=== PATIENT | female | born 1960 | race Caucasian/White ===

== ENCOUNTER 2021-06-22 06:55 | Observation (INO) | payer OTHER ==
[~2021-06-22] VITALS: Ht 162.6 cm; Wt 72.7 kg
[~2021-06-22 06:55] MED LIST: ONDANSETRON ODT8 MG PO; OXYCODONE HCL5 MG PO; PROMETHAZINE HC25 M1 PO; REGLAN10 MG
[2021-06-22] MEDS ORDERED: ALPRAZOLAM0.5 MG PO (08:17)
[2021-06-23] MEDS ORDERED: OXYCODON-ACETA1 EAC2 PO (13:37)
[2021-06-23] MEDS ORDERED: ACETAMINOPHEN500 MG PO (13:37)
--- NOTE | 2021-06-30 11:31 | PATH ---
[facility] [address] [place], [place] [address] Signed SPECIMEN(S): A LEFT RADICAL MODIFIED MASTECTOMY LEVEL [address] SPECIMEN SOURCE: A. LEFT RADICAL MODIFIED MASTECTOMY LEVEL [address] CLINICAL HISTORY: Infiltrating ductal carcinoma of left breast. Left mastectomy with inj. methylene blue for SLN bx with IOPC with possible axillary dissection. FINAL PATHOLOGIC DIAGNOSIS: Breast and level 3 axillary lymph nodes, left, modified radical mastectomy: - Invasive ductal carcinoma with the following features: - Tumor sites: 1 o'clock. - Histologic type: Invasive carcinoma of no special type (ductal). - Histologic grade (Coloma histologic score): - Glandular (acinar)/tubular differentiation score: 3. - Nuclear pleomorphism score: 2. - Mitotic rate score: 3. - Overall grade: Grade 3 of 3 (total score 8 of 9). - Tumor size: Focus 1: 27 x 22 x 21 mm Focus 2: 19 x 17 x 16 mm - Tumor focality: Two foci of invasive carcinoma, see comment. - Ductal carcinoma in situ (DCIS): Present. - Architectural patter: Solid. - Nuclear grade: Grade 3 (high). - Necrosis: Present, focal. - Lobular carcinoma in situ (LCIS): Not identified. - Lymphovascular invasion: Present. - Dermal lymphovascular invasion: Not identified. - Microcalcifications: Present in DCIS, invasive carcinoma, and non-neoplastic tissue. - Treatment effect in the breast: No known presurgical therapy. - Margins: All margins negative for invasive carcinoma. - Posterior margin: Less than 1 mm, see Comment. - Superior and inferior margins: Greater than 10 mm. - Margin status for DCIS: All margins negative for DCIS. - Greater than 10 mm from all margins. - Regional lymph nodes: Tumor present in regional lymph nodes. - Number of lymph nodes with macrometastases: 11 - Number of lymph nodes with micrometastases: 1 PATIENT NAME: GO BELTRAN PATHOLOGY DATE OF : 56 REPORT #: [id number] PHYSICIAN: ADOLFO PATHOLOGY PCP: MARCELLUS JOHNSON PROCESSING OPERATOR REPORT IS CONFIDENTIAL AND NOT TO BE RELEASED WITHOUT AUTHORIZATION [facility] [address] [place], [place] [address] Signed - Number of lymph nodes with isolated tumor cells: 1 - Size of largest vj metastatic deposit: 15 mm - Extra vj extension: Present, >2 mm - Total number of lymph nodes examined: 15 - Number of sentinel nodes examined: Not applicable. - Breast biomarker studies: Please refer to previously performed testing ([id number]), interpreted as ER positive, WV negative and HER2 positive for amplification by FISH. - Pathologic stage classification (pTNM, AJCC 8th edition): mpT2 pN3a COMMENT: Gross examination revealed two masses at the 1 o'clock position. These two masses were 1.3 cm apart from each other. Microscopically, the tissue between the two masses at the 1 o'clock position contained some foci of invasive ductal carcinoma, however the invasive carcinoma does not appear to be continuous through the intervening tissue. Therefore, the two masses are considered two separate tumor foci. The closest posterior margin is in regards to tumor within an upper outer quadrant lymph node. As part of [facility] Clinical Data Programmer Program, this case was reviewed by another member of our pathology staff. The findings were discussed with Dr. Cade on 06/30/2021. NAL:cml:C1NR MICROSCOPIC EXAMINATION: Histologic sections of all submitted blocks are examined by light microscopy. These findings, together with the gross examination, support the pathologic diagnosis. GROSS DESCRIPTION: The specimen, labeled "NL, A," and designated on the requisition "left radical modified mastectomy and level 3 axillary lymph nodes," is received in formalin and consists of a 767 gram, 20.2 x 19.6 x 3.7 cm mastectomy specimen with attached axillary tail up to 7.2 cm wide. The specimen is oriented using the axillary tail. On the anterior surface of the specimen is an oval, unoriented, christian, wrinkled, 20.1 x 10.1 cm skin segment with a centrally located, previously partially blue inked, 4.7 x 4.2 cm areola that has a sunken, christian, grossly unremarkable, 1.1 x 1.0 x 0.6 cm nipple. Additionally, the skin has a 0.2 x 0.2 cm, red macule lesion that is 1.7 cm PATIENT NAME: GO BELTRAN PATHOLOGY DATE OF : 56 REPORT #: [id number] PHYSICIAN: ADOLFO PATHOLOGY PCP: MARCELLUS JOHNSON PROCESSING OPERATOR REPORT IS CONFIDENTIAL AND NOT TO BE RELEASED WITHOUT AUTHORIZATION [address] [address] Signed from the nearest peripheral skin margin, superior. An additional skin surface discrete mass/lesion is not grossly identified. The specimen is follows: Superior aspect of specimen = blue; inferior aspect of specimen = green; posterior = black. The specimen is sectioned from medial to lateral into 21 slices to reveal three christian-white, indurated masses. The first mass (slices 10-12) is within the central portion of the specimen, 2.7 x 2.2 x 2.1 cm, christian-white, markedly indurated, ill-defined, and directly beneath the nipple. The mass does not grossly appear to involve the nipple. The mass is 0.2 cm from the skin, 0.2 cm from the nipple, 2.5 cm from the deep margin, 4.4 cm from the superior margin, and 7.1 cm from the inferior margin. The second mass (slices 14-15) is 1.3 cm from the first mass, ill-defined, christian-white, 1.9 x 1.7 x 1.6 cm. The mass is 0.7 cm from the deep margin, 2.7 cm from the skin, 4.1 cm from the superior margin, 6.5 cm from the inferior margin, and 8.3 cm from the nipple. The combined greatest length of the first and second mass together is 5.2 cm. The third mass (slices 19-20) is 1.5 x 1.1 x 0.7 cm, christian-white, ill-defined, indurated, and consistent with a possible lymph node due to its location in the upper outer quadrant. The mass is 2.3 cm from the second mass, 0.1 cm from the deep margin, 2.1 cm from the skin, 3.5 cm from the superior margin, 4.6 cm from the inferior margin, and 12.9 cm from the nipple. The remaining parenchyma is comprised of yellow fibrofatty and christian-white fibroglandular tissue. The fibroglandular tissue contains multiple, rare areas of clear to brown fluid-filled, smooth inner walled cystic structures from less than 0.1 up to 0.7 cm in greatest dimension. An additional discrete mass/lesion is not grossly identified. Fibroglandular tissue comprises approximately 15% of the remaining parenchyma. A biopsy marker is not grossly identified. The axillary tail is palpated for lymph nodes and 13 mostly christian-white, indurated lymph node candidates from 0.4 up to 1.6 cm in greatest dimension are found. Residential Therapist sections are submitted as follows: (A1) First mass to nipple and areolar complex (slice 10) (A2) First mass to skin (slice 11) (A3) First mass to normal parenchyma (slice 11) (A4) Nearest posterior margin to first mass (slice 11); (A2-A4) form a full cross-section of first mass PATIENT NAME: GO BELTRAN PATHOLOGY DATE OF : 56 REPORT #: [id number] PHYSICIAN: ADOLFO SNYDER PCP: MARCELLUS JOHNSON PROCESSING OPERATOR REPORT IS CONFIDENTIAL AND NOT TO BE RELEASED WITHOUT AUTHORIZATION [facility] [address] [facility] [place], [place] [address] Signed (A5) Nearest superior margin to first mass (slice 11) (A6) Nearest inferior margin to first mass (slice 11) (A7-A8) Sections between first and second mass (slice 13) (A9-A10) Second mass to deep margin (slice 14) (A11) Second mass nearest superior margin (slice 14) (A12) Second mass nearest inferior margin (slice 14) (A13) Second mass nearest skin (slice 14) (A14) Section in between second and third (slice 17) (A15-A16) Third mass to deep margin (slice 19) (A17) Third mass nearest skin (slice 19) (A18) Third mass nearest superior margin (slice 19) (A19) Third mass to nearest inferior margin (slice 19) (A20) Area of dense fibroglandular tissue (slice 10) (A21) Upper-outer quadrant (slice 15) (A22) Lower outer quadrant (slice 18) (A23) Upper inner quadrant (slice 7) (A24) Lower inner quadrant (slice 6) (A25) 1 trisected lymph node candidate (A26) 3 lymph node candidates in toto (A27) 2 lymph node candidates in toto (A28) 2 lymph node candidates in toto (A29) 1 trisected lymph node candidate (A30) 1 bisected lymph node candidate (A31) 1 bisected lymph node candidate (A32-A33) 1 bisected lymph node candidate (A34-A37) 1 quadrisected lymph node candidate Cold ischemic time: Grossly indeterminate due to lack of information. Formalin fixation time: Between 6 and 72 hours. AI (under the direct supervision of a pathologist) The Gross Description was prepared using a voice recognition system. The report was reviewed for accuracy; however, sound-alike word errors, addition and/or deletions may occur. If there is any question about this report, please contact Client Services. PERFORMING LABORATORY: The technical component was performed by [email or web address] [address] (Wharf Attendant: Prabha Noe MD; CLIA# [id number]). [email or web address], [address] [place] [address] (CLIA# [id number]). PATIENT NAME: GO BELTRAN PATHOLOGY DATE OF : 56 REPORT #: [id number] PHYSICIAN: ADOLFO PATHOLOGY PCP: MARCELLUS JOHNSON NP REPORT IS CONFIDENTIAL AND NOT TO BE RELEASED WITHOUT AUTHORIZATION [facility] [address] [place], [place] [address] [address] Signed Diagnostician: Taylor Kumar MD Pathologist Electronically Signed 06/30/2021 Copies: ~ PATIENT NAME: GO BELTRAN PATHOLOGY DATE OF : 56 REPORT #: [id number] PHYSICIAN: ADOLFO PATHOLOGY PCP: MARCELLUS JOHNSON NP REPORT IS CONFIDENTIAL AND NOT TO BE RELEASED WITHOUT AUTHORIZATION
--- NOTE | 2021-07-01 11:23 | OR ---
[facility] [address] [place], [place] [address] Signed DATE OF OPERATION: 06/22/2021 SURGEON: Mallory Walsh MD PREOPERATIVE DIAGNOSES: 1. Left subareolar infiltrating ductal breast carcinoma with nipple retraction; additional rock-hard upper outer quadrant mass biopsy inconclusive. 2. Possible axillary lymph node enlargement on ultrasound. POSTOPERATIVE DIAGNOSES: 1. Left subareolar infiltrating ductal breast carcinoma with nipple retraction; additional rock-hard upper outer quadrant mass biopsy inconclusive. 2. Possible axillary lymph node enlargement on ultrasound. PROCEDURES PERFORMED: Clinically positive multiple hard axillary lymph nodes. 1. Left sentinel lymph node methylene blue dye injection. 2. Left modified radical mastectomy (level 3 axillary adenectomy). ANESTHESIA: General LMA; Mallory Bonner CRNA. INDICATIONS: This 60-year-old white woman is a patient of Evette Johnson, nurse practitioner in [place], [place]. She was noted to have retraction of the left nipple and a mammogram was performed showing several left breast lesions, at least 2 quite suspicious for malignancy. Her mammogram was performed on May 31, 2021. It was considered BI-RADS category 5. An ultrasound guided biopsy of the subareolar mass confirmed infiltrating ductal carcinoma. There was another lesion that was so dense and hard in the upper outer aspect that adequate biopsy could not be undertaken, though the lesion was well visualized. The lesion was considered to be infiltrating ductal carcinoma, grade 3/3 with extensive high-grade ductal carcinoma in situ as well as lymphovascular invasion. HER-2/miguel angel receptor is equivocal. Consideration is made for open excisional biopsy of the additional lesion in the upper outer aspect. However, I see at least one other possible lesion of the breast that would likely be positive for malignancy and her underlying breast cancer should be clinically suspect as a multicentric breast cancer. Imaging studies did show axillary lymph node enlargement, though clinical examination does not show that. She has no sign of left arm edema. We have discussed the various options of management and have concluded a left total Electronically Signed By: MALLORY WALSH MD 07/01/21 1123 PATIENT NAME: GO BELTRAN OPERATIVE REPORT DATE OF : 56 REPORT #: [id number] PHYSICIAN: MALLORY WALSH MD PCP: MARCELLUS JOHNSON LEATHER GRADER REPORT IS CONFIDENTIAL AND NOT TO BE RELEASED WITHOUT AUTHORIZATION [facility] [address] [place], [place] [address] Signed mastectomy, sentinel lymph node biopsy, possible axillary dissection would be the most appropriate given her particular circumstances. The risks of bleeding, infection, cosmetic deformity, and so forth were all reviewed. We did also discuss reconstruction options. Given the possibility this represents stage III disease, I have recommended against immediate reconstruction to allow for complete cancer treatment and reconstruction in the future if desired. She agrees with this assessment as well. She understands the risks of bleeding, infection, cosmetic deformity, arm edema, need for additional treatment and so on and wished to proceed. FINDINGS: Injection of methylene blue dye in the subepithelial space in the left periareolar area did not show any uptake to any axillary lymph nodes at all; this was highly suspect for lymphatic congestion. The lymph nodes within the left axilla were highly suspicious for multiple metastatic lymph nodes. They were rock-hard and extended up to the level 3 lymph node station. Extensive left axillary dissection up to level 3 lymph nodes was undertaken in addition to a total mastectomy. There was no remaining palpable suspicious lymph nodes in the axilla. The long thoracic and thoracodorsal neurovascular bundles were identified and preserved. DESCRIPTION OF PROCEDURE: The patient was brought to the operating room, given a general LMA type anesthetic. Preoperative antibiotic Ancef was given. Sequential compression device stockings used and heparin subcutaneously administered. The palpable lesion in the central breast was easily identified and an upper outer quadrant mass also identified. Axillary palpation showed no suspicious nodes. The left chest and breast were prepared with a Betadine based solution and draped sterilely. Appropriate area for excision of nipple-areolar complex was outlined and a broad-based tail taken towards the axilla so as to avoid left axillary deformity. An incision was made with a 15 blade and developed with electrocautery. Superior and inferior flaps were developed with blunt and electrocautery dissection maintaining viable flaps, but assuredly taking the breast parenchyma itself. Dissection laterally was undertaken leaving the axillary fat pad in situ. The breast was excised from a medial to lateral direction using electrocautery leaving of course the pectoralis muscle, but taking the pectoralis fascia. The rectus muscle inferiorly and serratus muscles laterally were identified and preserved. Sharp dissection was used to free the lateral edge of the left pectoralis and retraction of the pectoralis allowed for identification of soft tissue between the pectoralis minor and major. Sharp dissection on the glistening capsule of the axillary contents was undertaken and using blunt dissection, search was made for methylene blue lymph tissue. There was none forthcoming. There were no lymphatic channels identified with blue dye either, which Electronically Signed By: MALLORY WALSH MD 07/01/21 1123 PATIENT NAME: GO BELTRAN OPERATIVE REPORT DATE OF : 56 REPORT #: [id number] PHYSICIAN: MALLORY WALSH MD PCP: ELIZABETH,MARCELLUS L LEATHER GRADER REPORT IS CONFIDENTIAL AND NOT TO BE RELEASED WITHOUT AUTHORIZATION [facility] [address] [place], [place] [address] Signed was obviously indicative of probable lymphatic congestion. Palpation of the parenchyma of the axilla showed rock-hard lymph nodes completely consistent with metastatic disease. Further dissection was undertaken in hopes of finding a sentinel lymph node to pass for pathology to more fully justify complete axillary dissection. Further dissection cephalad showed the multiple very suspicious lymph nodes and therefore, axillary dissection was deemed most advisable even without frozen pathology confirmation of metastatic disease. Sharp dissection was undertaken in the region of the left axillary vein. The dissection guided by the level of suspicious nodes in the apex of the axilla. Small clips were applied to neurovascular bundles as required. The long thoracic and thoracodorsal neurovascular bundles were preserved of course. Meticulous care was made in dissecting level 3 axillary tissue, which did have firm and suspicious lymph tissue within it. Ultimately, complete axillary dissection was accomplished. Further dissection of the axillary contents still showed no sign of uptake in methylene blue dye. Irrigation was undertaken of the wound with sterile water. Hemostasis had been assured with electrocautery and clips as necessary. Inferiorly, 2 small stab incisions allowed for placement of 7 mm flat Manny drains, one beneath the flaps, the other in the axilla. The flaps appeared viable. The skin of the flaps was reapproximated with interrupted 2-0 Vicryl and the skin was then closed with a running subcuticular 3-0 Vicryl. Steri-Strips were applied as was an Acticoat dressing. An op-site was used to secure the Manny drains, which were then attached to bulb suction. Blood loss was approximately 100 mL. Sponge, needle, and instrument counts reported as correct x3. MD JW Sal/MODL /[id number] cc: MD Evette Suarez NP [place], [place] Electronically Signed By: MALLORY WALSH MD 07/01/21 1123 PATIENT NAME: GO BELTRANE OPERATIVE REPORT DATE OF : 56 REPORT #: [id number] PHYSICIAN: MALLORY WALSH MD PCP: MARCELLUS JOHNSON NP REPORT IS CONFIDENTIAL AND NOT TO BE RELEASED WITHOUT AUTHORIZATION [facility] [address] [place] [address] [place] [id number] Signed Copies: ANNMARIE PARHAM MD ~ Electronically Signed By: MALLORY WALSH MD 07/01/21 1123 PATIENT NAME: DEVINGO TY OPERATIVE REPORT DATE OF : 56 REPORT #: [id number] PHYSICIAN: MALLORY WALSH MD PCP: MARCELLUS JOHNSON NP REPORT IS CONFIDENTIAL AND NOT TO BE RELEASED WITHOUT AUTHORIZATION
== END 2021-06-23 14:45 | disposition home or self-care (01) ==
LOC: DS 06:55 → MS 09:30 → EDSTATUS 09:30 → MS 12:30 → DS 13:36 → MS 13:36
PROVIDERS: ADMIT Surgery; ATTEND Surgery
PROC: 0HBU0ZZ Excision of Left Breast, Open Approach (ICD-10-PCS; principal; 2021-06-22 08:45)
DX: C50.412 Malignant neoplasm of upper-outer quadrant of left female breast (principal); Z90.49 Acquired absence of other specified parts of digestive tract; Z88.1 Allergy status to other antibiotic agents
CPT/HCPCS: 36415; 76942; 85025; 96372; 96374; 96376; A9270; G0378; J0131; J0690; J1100; J1644; J1885; J2001; J2250; J2270; J2405; J2550; J2704; J2765; J2795; J3010; J7121; Q9968

== ENCOUNTER 2021-07-03 08:53 | Emergency (ER) | payer OTHER ==
[~2021-07-03] VITALS: Ht 162.6 cm; Wt 70.3 kg
[~2021-07-03 08:53] MED LIST changes: +ACETAMINOPHEN500 MG PO; +ALPRAZOLAM0.5 MG PO; +OXYCODON-ACETA1 EAC2 PO
--- OUTSIDE RECORDS SUMMARY | 2021-07-03 08:56 | XMS ---
PreManage Notification: GO BELTRAN Security Short Story Writer Events No recent Security Events currently on file [facility] There are no care providers on record at this time. Madhav has no Care Guidelines for this patient. Oni VISIT COUNT (12 MO.) 1 JOSE R Bee TOTAL 1 NOTE: Visits indicate total known visits. ED/UCC VISIT TRACKING (12 MO.) 07/03/2021 08:54 JOSE R [facility] [place] TYPE: Emergency COMPLAINT: - DEHYDRATED, NAUSEA, ABD PAIN INPATIENT VISIT TRACKING (12 MO.) 06/22/2021 13:36 JOSE R [facility] [place] TYPE: Observation COMPLAINT: - LEFT MASTECTOMY W/INJ METHYLENE BLUE FOR SLN BX DIAGNOSES: - Malignant neoplasm of nipple and areola, left female breast - Intraductal carcinoma in situ of left breast [email or web address]
[2021-07-03] MEDS ORDERED: OXYCONTIN30 MG PO (09:24)
[2021-07-03] MEDS ORDERED: K-TAB ER20 MEQ PO (14:49)
[2021-07-03] MEDS ORDERED: OXYCODONE HCL10 MG PO (14:49)
== END 2021-07-03 15:38 | disposition home or self-care (01) ==
LOC: ED 08:53
DX: R10.10 Upper abdominal pain, unspecified (principal); E87.6 Hypokalemia; Z88.1 Allergy status to other antibiotic agents; Z79.899 Other long term (current) drug therapy
CPT/HCPCS: 36415; 80053; 81001; 85025; 96374; 96375; 99284-25; A9270; J1170; J2405; J3480; J7030; J7040; J7060; J7121